=== PATIENT | female | born 1930 | race Caucasian/White ===

== ENCOUNTER 2017-02-21 16:57 | Emergency (ER) | payer OTHER ==
[~2017-02-21] VITALS: Ht 157.5 cm; Wt 60.0 kg
[~2017-02-21 16:57] MED LIST: AMLO5TAB2 PO; CARV3.12 PO; CHOL1CHW5 CHEW; CYAN1TAB24 PO; GABA100C4 PO; LEVO.075 PO; LISI10TA3 PO; MACR100C2 PO; PANT40TA3 PO; PLAV75TA29 PO; TRAZ50TA12 PO
[2017-02-21 16:59] VITALS: BP 174/80; PULSE 89; RESP 16; TEMP 97.7; O2SAT 98
[2017-02-21] MEDS ORDERED: SODIUM CHLORIDE 0.9% FLUSH 10 ML FLUSH IVF PRN (19:30)
--- NOTE | 2017-02-21 19:39 | PD ---
HPI Chief Complaint: GI Complaint Time Seen by Provider: 19:32 Travel History International Travel<30 days: No Contact w/Intl Traveler<30days: No Traveled to known affect area: No History of Present Illness HPI 86 year old female presents to the emergency department for evaluation of generalized weakness, dizziness, abdominal pain, diarrhea. Patient reports history of diarrhea and states is not new for her. She states that she felt like her symptoms were oncoming last week. She states she started on Macrobid for urinary tract infection on Saturday. She started with abdominal pain on Saturday. She states that this morning, she started with dizziness. She states that she was unable to walk due to the dizziness. Patient reports increasing headaches with blurry vision. She denies headache at this time. No chest pain or shortness of breath. She states the abdominal pain is diffuse. She has had endoscopy and colonoscopy in the past, but does not know the results. She states her primary care physician is Dr. Poole. 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 PFSH Past Medical History Diminished Hearing: Yes Tetanus Vaccination: > 5 Years Influenza Vaccination: Yes ?: Not Past Surgical History Hysterectomy: Yes Social History Alcohol Use: No Tobacco Use: No Substance Use: No Allergies-Medications (Allergen,Severity, Reaction): Coded Allergies: Aspirin (Verified Allergy, Intermediate, 02/21/17) Epinephrine (Verified Allergy, Unknown, 02/21/17) Reported Meds & Prescriptions Reported Meds & Active Scripts Active Carvedilol 3.125 Mg Tab 3.125 Mg PO BID Plavix (Clopidogrel Bisulfate) 75 Mg Tab 75 Mg PO DAILY Pantoprazole (Pantoprazole Sodium) 40 Mg Tab 40 Mg PO DAILY Synthroid (Levothyroxine Sodium) 75 Mcg Tab 75 Mcg PO DAILY Gabapentin 100 Mg Cap 100 Mg PO HS Amlodipine (Amlodipine Besylate) 5 Mg Tab 5 Mg PO DAILY Lisinopril 10 Mg Tab 10 Mg PO DAILY Reported B12 (Cyanocobalamin) 1,000 Mcg Tab 1,000 Mcg PO DAILY Vitamin D3 (Cholecalciferol) 2,000 Unit Chew 2,000 Units CHEW DAILY Review of Systems Except as stated in HPI: all other systems reviewed are Neg Physical Exam Narrative GENERAL: Well-nourished, well-developed elderly female patient, afebrile. SKIN: Focused skin assessment warm/dry. HEAD: Normocephalic. Atraumatic EYES: No scleral icterus. No injection or drainage. NECK: Supple, trachea midline. No JVD or lymphadenopathy. CARDIOVASCULAR: Regular rate and rhythm without murmurs, gallops, or rubs. RESPIRATORY: Breath sounds equal bilaterally. No accessory muscle use. Lungs sounds are clear to auscultation GASTROINTESTINAL: Abdomen soft and nondistended. Patient has diffuse tenderness to palpation. MUSCULOSKELETAL: No cyanosis, or edema. BACK: Nontender without obvious deformity. No CVA tenderness. Data Data Last Documented VS Vital Signs Date Time Temp Pulse Resp B/P Pulse Ox O2 Delivery O2 Flow Rate FiO2 02/21/17 19:45 99 02/21/17 19:45 69 16 170/75 67 16 205/98 70 16 198/81 02/21/17 16:59 97.7 Orders Complete Blood Count With Diff (02/21/17 19:29) Comprehensive Metabolic Panel (02/21/17 19:29) Magnesium (Mg) (02/21/17 19:29) Ckmb (Isoenzyme) Profile (02/21/17 19:29) Troponin I (02/21/17 19:29) Act Partial Throm Time (Ptt) (02/21/17 19:29) Prothrombin Time / Inr (Pt) (02/21/17 19:29) Urinalysis - C+S If Indicated (02/21/17 19:29) Chest, Single Ap (02/21/17 19:29) Ecg Monitoring (02/21/17 19:29) Iv Access Insert/Monitor (02/21/17 19:29) Oximetry (02/21/17 19:29) Sodium Chloride 0.9% Flush (Ns Flush) (02/21/17 19:30) Lipase (02/21/17 19:29) Orthostatic Vital Signs (02/21/17 19:29) Ct Abd/Pel W Iv Contrast(Rout) (02/21/17 ) Sodium Chlorid 0.9% 500 Ml Inj (Ns 500 M (02/21/17 19:45) Electrocardiogram (02/21/17 18:50) Ct Brain W/O Iv Contrast(Rout) (02/21/17 ) Iohexol 350 Inj (Omnipaque 350 Inj) (02/21/17 20:48) Metronidazole (Flagyl) (02/21/17 22:00) Urine Culture (02/21/17 21:46) Labs Laboratory Tests Test 02/21/17 02/21/17 19:45 20:40 White Blood Count 8.5 TH/MM3 Red Blood Count 4.35 MIL/MM3 Hemoglobin 12.7 GM/DL Hematocrit 36.8 % Mean Corpuscular Volume 84.7 FL Mean Corpuscular Hemoglobin 29.1 PG Mean Corpuscular Hemoglobin 34.4 % Concent Red Cell Distribution Width 16.8 % Platelet Count 254 TH/MM3 Mean Platelet Volume 8.4 FL Neutrophils (%) (Auto) 70.0 % Lymphocytes (%) (Auto) 16.8 % Monocytes (%) (Auto) 10.1 % Eosinophils (%) (Auto) 2.7 % Basophils (%) (Auto) 0.4 % Neutrophils # (Auto) 5.9 TH/MM3 Lymphocytes # (Auto) 1.4 TH/MM3 Monocytes # (Auto) 0.9 TH/MM3 Eosinophils # (Auto) 0.2 TH/MM3 Basophils # (Auto) 0.0 TH/MM3 CBC Comment DIFF FINAL Differential Comment Prothrombin Time 11.5 SEC Prothromb Time International 1.0 RATIO Ratio Activated Partial 29.2 SEC Thromboplast Time Sodium Level 140 MEQ/L Potassium Level 3.7 MEQ/L Chloride Level 107 MEQ/L Carbon Dioxide Level 24.0 MEQ/L Anion Gap 9 MEQ/L Blood Urea Nitrogen 15 MG/DL Creatinine 1.22 MG/DL Estimat Glomerular Filtration 42 ML/MIN Rate Random Glucose 93 MG/DL Calcium Level 9.5 MG/DL Magnesium Level 2.0 MG/DL Total Bilirubin 0.4 MG/DL Aspartate Amino Transf 19 U/L (AST/SGOT) Alanine Aminotransferase 19 U/L (ALT/SGPT) Alkaline Phosphatase 94 U/L Total Creatine Kinase 41 U/L Troponin I LESS THAN 0.02 NG/ML Total Protein 8.1 GM/DL Albumin 3.6 GM/DL Lipase 189 U/L Urine Color YELLOW Urine Turbidity CLEAR Urine pH 5.0 Urine Specific [place] 1.004 Urine Protein NEG mg/dL Urine Glucose (UA) NEG mg/dL Urine Ketones NEG mg/dL Urine Occult Blood NEG Urine Nitrite NEG Urine Bilirubin NEG Urine Urobilinogen LESS THAN 2.0 MG/DL Urine Leukocyte Esterase MOD Urine RBC LESS THAN 1 /hpf Urine WBC 7 /hpf Urine Squamous Epithelial 1 /hpf Cells Urine Mucus FEW /lpf Microscopic Urinalysis Comment CULT NOT INDICATED MDM Medical Decision Making Medical Screen Exam Complete: Yes Emergency Medical Condition: Yes Medical Record Reviewed: Yes Interpretation(s) chest x-ray -CONCLUSION: No acute disease. CT brain - CONCLUSION: No acute disease. CT abdomen/pelvis - CONCLUSION: 1. Thickening of the sigmoid colon with scattered diverticula. Some degree of colitis in this region needs to be considered. 2. 2 cm cystic area is seen in the left adnexa. If the patient still has a left ovary this could be related to a left ovarian cyst. No other possible soft tissue mass is seen. If the patient does not have her left ovary then a seroma would be most likely. This could be evaluated with a pelvic ultrasound at a later date as an outpatient. 3. Mild hepatic steatosis. Differential Diagnosis gastroenteritis vs. viral syndrome vs. UTI vs. diverticulitis vs. bowel obstruction Narrative Course 86-year-old female presents to the emergency department for evaluation of intermittent headaches with blurry vision, dizziness, diarrhea, abdominal pain. EKG shows sinus rhythm, heart rate 72, no acute ST changes. CBC, CMP, magnesium, CK, troponin, lipase, PT, PTT/INR, UA are ordered and pending. Orthostatic vital signs are negative for orthostatic hypotension. Chest x-ray is ordered and pending. CT of the brain and CT abdomen/pelvis are ordered and pending. Patient is given normal saline 500 mL bolus. CBC is unremarkable. CMP shows creatinine 1.22. Magnesium is 2.0. CK is 41. Troponin is less than 0.02. Lipase is 139. Coags are unremarkable. UA shows moderate leukocyte esterase, 7 WBC. Chest x-ray shows no acute disease. CT of the brain shows no acute disease. CT of the abdomen/pelvis shows thickening of the sigmoid colon with scattered diverticula, secondary colitis in this region needs to be considered, 2 cm cystic area in the left adnexa possible ovarian cyst versus seroma. This can be evaluated as a outpatient pelvic ultrasound and later date. Mild hepatic steatosis. I discussed the case with my attending physician, Dr. Burk, who would like patient to be started on Flagyl. Patient is able to ambulate in the emergency department. I added on a culture of the urine. Patient will be given first dose of Flagyl the emergency department. She states she does not tolerate the Macrobid. The patient will be changed to Keflex. Patient is instructed to follow-up with her physician in one to 2 days. She verbalizes agreement. She is return immediately for any acute worsening of symptoms. I gave the patient a copy of her CT report of the abdomen/pelvis. She is instructed to get an outpatient pelvic ultrasound due to possible ovarian cyst versus seroma. She verbalizes agreement to this. Diagnosis Primary Impression: Colitis Additional Impression: Urinary tract infection Qualified Code: N30.00 - Acute cystitis without hematuria Referrals: Primary Care Physician 2 days Patient Instructions: Colitis (ED), General Instructions, Urinary Tract Infection in Women (ED) Additional Instructions: Follow-up with your primary care physician in one to 2 days. Take Flagyl as directed. Do not drink alcohol while taking this medication. Take Keflex as directed. Stop taking the Macrobid. Follow-up with your primary care physician and show him the CT report. Outpatient pelvic ultrasound is recommended. Return to the emergency department for any acute worsening of symptoms. Med/Other Pt SpecificInfo: Prescription(s) given Scripts Cephalexin (Keflex)500 Mg You363 Mg PO Q8H 7 Days Ref 0 Prov:Yuliana Michael 02/21/17 Metronidazole (Flagyl)500 Mg Dif044 Mg PO TID 10 Days Ref 0 Prov:Yuliana Michael 02/21/17 Disposition: 01 DISCHARGE HOME Condition: Stable uYliana Michael February 21, 2017 19:39
[2017-02-21 19:45] VITALS: BP_SYST 170; BP_SYST 198; BP_SYST 205; BP_DIAS 75; BP_DIAS 81; BP_DIAS 98; RESP 16; O2SAT 99
[2017-02-21] MEDS ORDERED: SODIUM CHLORID 0.9% 500 ML INJ 500 ML IV ONE (19:45)
--- NOTE | 2017-02-21 20:06 | RADRPT ---
EXAM DATE/TIME: 02/21/2017 19:42 [facility] COMPARISON: No previous studies available for comparison. INDICATIONS : Shortness of breath and dizziness. MEDICAL HISTORY : None. SURGICAL HISTORY : Cholecystectomy. ENCOUNTER: Initial ACUITY: 3 days PAIN SCORE: 0/10 LOCATION: Bilateral chest FINDINGS: A single view of the chest demonstrates the lungs to be symmetrically aerated without evidence of mas s, infiltrate or effusion. The cardiomediastinal contours are unremarkable. Osseous structures are intact. CONCLUSION: No acute disease. Ayaan Walsh MD on February 21, 2017 at 20:04 Board Certified Radiologist. This report was verified electronically.
[2017-02-21 20:17] LABS: AUTOMATED NEUTROPHIL # 5.9 TH/MM3 (1.8-7.7); BASOPHIL % 0.4 % (0.0-2.0); EOSINOPHIL # 0.2 TH/MM3 (0-0.4); EOSINOPHIL % 2.7 % (0.0-4.0); HEMATOCRIT 36.8 % (35.0-46.0); HEMO FLAGS DIFF FINAL; LYMPH % 16.8 % (9.0-44.0); LYMPHOCYTE # 1.4 TH/MM3 (1.0-4.8); MEAN CELL VOLUME 84.7 FL (80.0-100.0); MEAN CORPUSCULAR HEMOGLOBIN 29.1 PG (27.0-34.0); MEAN CORPUSCULAR HGB CONC 34.4 % (32.0-36.0); MONO % 10.1 % (0.0-8.0); PLATELET COUNT 254 TH/MM3 (150-450); RED BLOOD COUNT 4.35 MIL/MM3 (4.00-5.30); RED CELL DISTRIBUTION WIDTH 16.8 % (11.6-17.2); WHITE BLOOD COUNT 8.5 TH/MM3 (4.0-11.0)
[2017-02-21 20:31] LABS: ANION GAP 9 MEQ/L (5-15); AST (GOT) 19 U/L (15-37); BLOOD UREA NITROGEN 15 MG/DL (7-18); CHLORIDE 107 MEQ/L (98-107); GLOMERULAR FILTRATION RATE 42 ML/MIN (>89); POTASSIUM 3.7 MEQ/L (3.5-5.1); SODIUM (NA) 140 MEQ/L (136-145)
[2017-02-21 20:32] LABS: APTT (PATIENT) 29.2 SEC (24.3-30.1); PROTHROMBIN TIME - PATIENT 11.5 SEC (9.8-11.6)
[2017-02-21 20:36] LABS: ALKALINE PHOSPHATASE 94 U/L (45-117); ALT (GPT) 19 U/L (10-53); TOTAL BILIRUBIN ADULT 0.4 MG/DL (0.2-1.0)
[2017-02-21] MEDS ORDERED: IOHEXOL 350 MG/ML 10 ML VIAL (for RAD DIAG) IV ONE (20:48)
[2017-02-21 20:55] LABS: BLOOD, URINE NEG (NEG); COMMENT (UR) CULT NOT INDICATED; CULTURE IF INDICATED CULT NOT INDICATED; GLUCOSE,URINE NEG (NEG); KETONE, URINE NEG (NEG); MUCUS URINE FEW /lpf (OCC); NITRITE,URINE NEG (NEG); SQUAMOUS EPITHELIAL CELL URINE 1 /hpf (0-5); URINE COLOR YELLOW (YELLW/STRAW)
[2017-02-21 21:02] LABS: CREATINE KINASE 41 U/L (26-192)
--- NOTE | 2017-02-21 21:04 | RADRPT ---
EXAM DATE/TIME: 02/21/2017 20:43 [facility] COMPARISON: No previous studies available for comparison. INDICATIONS : Cephalgia. RADIATION DOSE: 56.35 CTDIvol (mGy) MEDICAL HISTORY : None SURGICAL HISTORY : None. ENCOUNTER: Initial ACUITY: 1 day PAIN SCALE: 5/10 LOCATION: cranial TECHNIQUE: Multiple contiguous axial images were obtained of the head. Using automated exposure control and adj ustment of the mA and/or kV according to patient size, radiation dose was kept as low as reasonably a chievable to obtain optimal diagnostic quality images. FINDINGS: CEREBRUM: The ventricles are normal for age. No evidence of midline shift, mass lesion, hemorrhage or acute in farction. No extra-axial fluid collections are seen. POSTERIOR FOSSA: The cerebellum and brainstem are intact. The 4th ventricle is midline. The cerebellopontine angle i s unremarkable. EXTRACRANIAL: The visualized portion of the orbits is intact. There is minimal left maxillary sinus disease. SKULL: The calvaria is intact. No evidence of skull fracture. CONCLUSION: No acute disease. Ayaan Wlash MD on February 21, 2017 at 21:01 Board Certified Radiologist. This report was verified electronically.
--- NOTE | 2017-02-21 21:17 | RADRPT ---
EXAM DATE/TIME: 02/21/2017 20:42 [facility] COMPARISON: No previous studies available for comparison. INDICATIONS : Abdominal pain with diarrhea after urinary tract infection. IV CONTRAST: 80 cc Omnipaque 350 (iohexol) IV ORAL CONTRAST: No oral contrast ingested. RADIATION DOSE: 9.96 CTDIvol (mGy) MEDICAL HISTORY : None SURGICAL HISTORY : Hysterectomy. ENCOUNTER: Initial ACUITY: 1 day PAIN SCALE: 5/10 LOCATION: Abdomen TECHNIQUE: Volumetric scanning of the abdomen and pelvis was performed. Using automated exposure control and adjustment of the mA and/or kV according to patient size, radiation dose was kept as low as reasonably achievable to obtain optimal diagnostic quality images. FINDINGS: There is mild decreased attenuation in the liver. No focal hepatic lesions are seen. T here are calcified granulomas seen in the spleen. The pancreas, adrenal glands, and kidneys appear g rossly normal. No hydronephrosis is seen. There is scattered atherosclerotic calcifications seen in the arterial system but no aneurysm is seen. There does appear to be thickening of the sigmoid colon with multiple diverticula. The remaining asp ect of the bowel is grossly unremarkable for a standard CT examination. The patient does have a 2 cm cystic area seen in the left pelvis. The patient appears to be status post hysterectomy. No other p ossible pelvic mass is seen. The lung bases are clear. There is degenerative change in the lumbar s pine CONCLUSION: 1. Thickening of the sigmoid colon with scattered diverticula. Some degree of colitis in this region needs to be considered. 2. 2 cm cystic area is seen in the left adnexa. If the patient still has a left ovary this could be related to a left ovarian cyst. No other possible soft tissue mass is seen. If the patient does not have her left ovary then a seroma would be most likely. This could be evaluated with a pelvic ultra sound at a later date as an outpatient. 3. Mild hepatic steatosis. Ayaan Walsh MD on February 21, 2017 at 21:02 Board Certified Radiologist. This report was verified electronically.
[2017-02-21] MEDS ORDERED: CEPH-460 PO (21:53)
[2017-02-21] MEDS ORDERED: METR-1 PO (21:53)
[2017-02-21] MEDS ORDERED: metroNIDAZOLE 500 MG TAB PO ONE (22:00)
[2017-02-21 22:22] VITALS: BP 186/86
--- NOTE | 2017-02-22 15:35 | EKG ---
Date Performed: 02/21/2017 Time Performed: 18:50:30 PTAGE: 86 years EKG: Sinus rhythm WITH FIRST DEGREE AV BLOCK POSSIBLE ANTERIOR MYOCARDIAL INFARCTION ABNORMAL ECG NO PREVIOUS TRACING DOCTOR: Deondre Wayne Interpretating Date/Time 02/22/2017 15:31:12
[2017-03-08] MEDS ORDERED: AMLO10TA2 PO (12:10)
[2017-03-08] MEDS ORDERED: LISI10TA3 PO (12:11)
[2017-03-08] MEDS ORDERED: PLAV75TA29 PO (12:11)
[2017-03-08] MEDS ORDERED: LEVO.075 PO (12:11)
[2017-04-11] MEDS ORDERED: AMLO5TAB2 PO (15:25)
[2017-04-11] MEDS ORDERED: PERI8.6T PO (15:29)
== END 2017-02-21 22:29 | disposition home or self-care (01) ==
LOC: NEPC 16:57
DX: K52.9 Noninfective gastroenteritis and colitis, unspecified (principal); N30.00 Acute cystitis without hematuria; R42 Dizziness and giddiness; R94.31 Abnormal electrocardiogram [ECG] [EKG]
CPT/HCPCS: 70450; 71010; 74177; 80053; 81001; 82550; 83690; 83735; 84484; 85025; 85610; 85730; 87086; 93005; 96360; 96361; 99285; J7040; Q9967

== ENCOUNTER → 2017-08-15 | Outpatient (CLI) | payer OTHER ==
[~2017-08-15] MED LIST changes: -CHOL1CHW5 CHEW; -MACR100C2 PO; +PERI8.6T PO; -TRAZ50TA12 PO
--- NOTE | 2017-08-16 09:07 | RSPPFT ---
DATE OF PROCEDURE: 08/15/17 COMMENTS: Spirometry shows FVC of 1.6 at 79% of predicted, FEV1 of 1.2 at 90%, FEV1/FVC ratio is normal. Flow is normal at FEF 25, FEF 50, FEF 75 and FEF 25-75. There is no response after bronchodilator treatment. Lung volumes show residual volume is normal. TLC is normal. Diffusion capacity is normal when corrected for lung volumes. Flow volume loops indicate a normal pattern. IMPRESSION: 1. Normal spirometry. 2. No response after bronchodilator treatment. 3. Normal lung volumes. 4. Diffusion capacity is normal when corrected for alveolar volume.
== END ==
LOC: HRSP 13:03
PROVIDERS: ATTEND Internal Medicine Cardiovascular Disease
DX: R06.02 Shortness of breath (principal)
CPT/HCPCS: 94060; 94726; 94729